=== PATIENT | female | born 1960 | race African-American/Black ===

== ENCOUNTER 2020-09-17 09:13 | Emergency (ER) | payer BC ==
[~2020-09-17] VITALS: Ht 180.3 cm; Wt 70.4 kg
[2020-09-17 09:25] VITALS: BP 127/88
--- NOTE | 2020-09-17 10:57 | RAD ---
3 view study of the right knee Clinical indications: Right knee pain for 3 weeks. FINDINGS: No acute fracture or dislocation or lytic process is seen. 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 There is mild degenerative joint space narrowing and spurring of the lateral tibiofemoral joint compartment. Small right knee joint effusion is seen. IMPRESSION: No acute fracture. Mild primary degenerative osteoarthritis. Electronically signed by: Gt Garcia MD (09/17/2020 10:55 AM) [id number]
[2020-09-17] MEDS ORDERED: METH4TAB2 PO (11:12)
[2020-09-17] MEDS ORDERED: NAPR-683 PO (11:12)
--- NOTE | 2020-09-17 11:12 | ED.ADGEN ---
Past Medical History Past Medical History: High Cholesterol Past Surgical History: Hysterectomy, Other Additional Past Surgical Histo: BACK Smoking Status: Current Every Day Smoker Additional Information: 0.5 PPD Alcohol Use: None General Adult EDM: Chief Complaint: KNEE SWELLING HPI: HPI: Patient is a 60 year old AA female who presents emergency department complaints of right knee pain and swelling for the last 2-1/2 to 3 weeks. Patient denies any injury or recent falls. She states she has been wearing a compression knee sleeve with no benefit. Patient states she has arthritis in her hands but denies any known arthritis in her knees. She currently rates the pain a 10 out of 10 on the pain scale, the pain is worse with weightbearing and movement. She denies any alleviating factors, patient reports she has been taking Tylenol and ibuprofen with no relief. Review of Systems: Review of Systems: Complete ROS is negative unless otherwise noted in HPI. Allergies: Allergies: Allergies Uncoded Allergies Type Severity Reaction Last Updated Verified NUTS Allergy Unknown 09/17/20 Physical Exam: PE: See Above Constitutional: Well developed, well nourished, no acute distress, non-toxic appearance. [] HENT: Normocephalic, atraumatic, bilateral external ears normal, nose normal. [] Eyes: PERRLA, EOMI, conjunctiva normal, no discharge. [] Neck: Normal range of motion, no stridor. [] Cardiovascular:Heart rate regular rhythm Lungs & Thorax: Respirations even and unlabored, no retractions, no respiratory distress Skin: Warm, dry, no erythema, no rash. [] Extremities: Right knee: Diffuse tenderness to palpation without obvious deformity or crepitus, no cyanosis, ROM intact, 1+ edema, no erythema, no warmth, Neurologic: Alert and oriented X 3, normal motor, normal sensory, no focal deficits noted. [] Psychologic: Affect normal, judgement normal, mood normal. [] Current Patient Data: Vital Signs: Vital Signs Date Time Temp Pulse Resp B/P (MAP) Pulse Ox O2 Delivery O2 Flow Rate FiO2 09/17/20 09:25 98.2 81 17 127/88 (101) 98 Room Air 98.2 EKG: EKG: [] Heart Score: C/O Chest Pain: No Risk Scores: Score 0 - 3: 2.5% MACE over next 6 weeks - Discharge Home Score 4 - 6: 20.3% MACE over next 6 weeks - Admit for Clinical Observation Score 7 - 10: 72.7% MACE over next 6 weeks - Early Invasive Strategies Radiology/Procedures: Radiology/Procedures: PROCEDURE: KNEE RIGHT 3V 3 view study of the right knee Clinical indications: Right knee pain for 3 weeks. FINDINGS: No acute fracture or dislocation or lytic process is seen. 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 There is mild degenerative joint space narrowing and spurring of the lateral tibiofemoral joint compartment. Small right knee joint effusion is seen. IMPRESSION: No acute fracture. Mild primary degenerative osteoarthritis. Electronically signed by: Gt Garcia MD (09/17/2020 10:55 AM) [id number][] Course & Med Decision Making: Course & Med Decision Making Pertinent Labs and Imaging studies reviewed. (See chart for details) Patient is a 60-year-old female who presented emergency department with complaints of right knee pain for the last 2-1/2 to 3 weeks. X-ray revealed arthritis of the affected joint. There is no bony abnormality. Prescription written for a Medrol Dosepak and naproxen. Patient given Dr. Proctor's information for further follow-up. Recommend that she wears the knee sleeve as needed for comfort. Also may apply ice or heat as needed for comfort. Patient verbalized an understanding of home care, medications, follow-up, and return to ED instructions and was in agreement with the plan of care. [] Dragon Disclaimer: Dragon Disclaimer: This electronic medical record was generated, in whole or in part, using a voice recognition dictation system. Departure Departure Impression: Primary Impression: Right anterior knee pain Additional Impression: Arthritis of right knee Disposition: 01 HOME / SELF CARE / HOMELESS Condition: STABLE Referrals: NO PCP (PCP) ELA PROCTOR MD Patient Instructions: Arthritis, Nonspecific, [id number], Knee Pain, Oyms-[id number] Additional Instructions: Fill prescription(s) and use as directed. Recommend application of ice, elevation, and rest of affected extremity. Recommend that you wear compression knee sleeve as needed for comfort. Follow-up with Dr. Proctor for further evaluation.. Return to the ER if your symptoms worsen or fever develops. Scripts Methylprednisolone (MEDROL) 4 Mg Tab.ds.pk 1 PKG PO UD for 6 Days, #1 PKG 0 Refills Prov: YEN JORGE APRN 09/17/20 Naproxen (NAPROSYN) 500 Mg Tablet 1 TAB PO BID for pain for 10 Days, #20 TAB 0 Refills Prov: YEN JORGE APRN 09/17/20 Problem Qualifiers YEN JORGE APRN September 17, 2020 11:12
== END 2020-09-17 11:20 | disposition home or self-care (01) ==
LOC: ER 09:13
DX: M17.11 Unilateral primary osteoarthritis, right knee (principal); E78.00 Pure hypercholesterolemia, unspecified; F17.200 Nicotine dependence, unspecified, uncomplicated; Z91.018 Allergy to other foods
CPT/HCPCS: 73562; 99284